=== PATIENT | female | born 1995 | race Caucasian/White ===

== ENCOUNTER → 2018-07-11 16:48 | Outpatient (CLI) | payer OTHER, SELFPAY ==
[2018-07-11 19:44] LABS: Chlamydia Trachomatis by PCR Negative (Negative); Neisserai gonorrhoeae by PCR Negative (Negative); Probe Check PASS; Sample Adequacy Control PASS; Specimen Processing Control PASS
[2018-07-19 07:39] LABS: HPV HC, High Risk Negative (Negative)
[2018-07-19 07:48] LABS: HPV Reflexed? YES, CHARGE PATIENT
== END ==
PROVIDERS: Visit Provider Obstetrics & Gynecology
DX: Z32.01 Encounter for pregnancy test, result positive (principal); Z12.4 Encounter for screening for malignant neoplasm of cervix; Z11.3 Encounter for screening for infections with a predominantly sexual mode of transmission
CPT/HCPCS: 87491; 87591; 87624; 88175; G0145

== ENCOUNTER → 2018-08-01 16:36 | Outpatient (CLI) | payer OTHER, SELFPAY ==
[2018-08-01 18:28] LABS: Color, Urine Yellow (Yellow); Glucose, Dipstick Normal (Normal); Ketone-Dipstick Negative (Negative); Leukocyte Esterase-Dipstick 25 /ul (Negative); Nitrite-Dipstick Negative (Negative); Occult Blood-Urine Negative /ul (Negative); Protein-Dipstick Negative (Negative); Specific Gravity, Urine 1.005 (1.002-1.030); Urine Bilirubin Dipstick Negative (Negative); Urine Clarity Clear (Clear); Urine Urobilinogen Normal (Normal)
[2018-08-01 18:30] LABS: Absolute Lymphocyte Count 1.72 X10^3/ul (0.83-4.51); Basophil# 0.02 X10^3/uL; Basophil% 0.2 % (0-1); Eosinophil# 0.09 X10^3/uL; Eosinophils% 1.1 % (0-5); Hematocrit 36.4 % (37-47); Hemoglobin 12.8 g/dl (12.0-15.0); Lymphocyte # 1.72 X10^3/ul (4.0); Lymphocyte % 20.2 % (19-41); Mean Corp Hgb Conc 35.2 g/gl (32-36); Mean Corpuscular Hgb 31.2 pg (27.0-32.0); Mean Corpuscular Volume 88.8 fL (81-99); Mean Platelet Vol. 9.9 fl (6.2-12.0); Monocyte% 7.1 % (0-10); Neutrophil # 6.04 X10^3/uL (2.7-7.7); Platelet Count 274 K/mm3 (150-450); RBC Distribution Width CV 11.9 % (11.6-14.6); RBC Distribution Width SD 37.6 fl (35.1-43.9); White Blood Count 8.5 K/mm3 (4.4-11.0)
[2018-08-01 18:35] LABS: Amphetamine Urine VISTA NEGATIVE (<1000 ng/mL); Barbiturate Urine VISTA NEGATIVE (< 200 ng/mL); Benzodiazepine Urine VISTA NEGATIVE (< 200 ng/mL); Cocaine Urine VISTA NEGATIVE (< 300 ng/mL); Ecstacy Urine VISTA NEGATIVE (< 500 ng/mL); Methadone Urine VISTA NEGATIVE (< 300 ng/mL); PCP Urine VISTA NEGATIVE (< 25 ng/mL); THC Urine VISTA NEGATIVE (< 50 ng/mL); Vista UDS pH Range 6
[2018-08-01 18:37] LABS: POSITIVE COUNT NO; POSITIVE DIFFERENTIAL NO; POSITIVE MORPHOLOGY NO
[2018-08-01 19:02] LABS: Thyroid Stim Hormone (TSH) 0.87 uIU/mL (0.358-3.74)
[2018-08-01 19:44] LABS: HIV - WCH Non-Reactive (Nonreactive); Rubella IgG 273.6 IU/mL
[2018-08-03 03:22] LABS: Prenatal RPR NONREACTIVE (NONREACTIVE)
[2018-08-05 13:10] LABS: HEPATITIS B SURFACE AG Negative (Negative); Hep C Antibodies <0.1 s/co ratio (0.0-0.9); V-Zoster IgG (Immunity) < 135 index (Immune >165)
== END ==
PROVIDERS: Visit Provider Obstetrics & Gynecology
DX: Z34.81 Encounter for supervision of other normal pregnancy, first trimester (principal)
CPT/HCPCS: 36415; 80307; 81002; 84443; 85025; 86703; 86762; 86787; 86803; 87340

== ENCOUNTER → 2018-11-08 13:08 | Outpatient (CLI) | payer OTHER, SELFPAY ==
[2018-11-08 16:11] LABS: Hematocrit 32.3 % (37-47); Hemoglobin 11.1 g/dl (12.0-15.0); Mean Corp Hgb Conc 34.4 g/gl (32-36); Mean Corpuscular Hgb 31.6 pg (27.0-32.0); Mean Platelet Vol. 9.5 fl (6.2-12.0); Platelet Count 259 K/mm3 (150-450); RBC Distribution Width CV 12.6 % (11.6-14.6); RBC Distribution Width SD 42.6 fl (35.1-43.9); Red Blood Count 3.51 M/mm3 (4.2-5.4); White Blood Count 10.6 K/mm3 (4.4-11.0)
[2018-11-08 16:12] LABS: Scan Indicated on CBC? Y/N NO
[2018-11-08 16:21] LABS: Glucose Challenge Gest 1H 50g 106 mg/dL (70-140)
== END ==
PROVIDERS: Visit Provider Obstetrics & Gynecology
DX: Z34.83 Encounter for supervision of other normal pregnancy, third trimester (principal)
CPT/HCPCS: 36415; 82950; 85027; 86850

== ENCOUNTER → 2018-12-27 | Outpatient (CLI) | payer OTHER, SELFPAY | END | disposition home or self-care (01) | LOC: LABSPEC 16:56 | PROVIDERS: Visit Provider Obstetrics & Gynecology | DX: Z36.85 Encounter for antenatal screening for Streptococcus B (principal) | CPT/HCPCS: 87081 ==

== ENCOUNTER 2019-02-01 02:00 | Inpatient (IN) | payer OTHER, MEDICAID, SELFPAY ==
[2019-02-01] MEDS: Lactated Ringers 1,000 ML 50 ML IV ×3 (02:33→08:06)
[2019-02-01 02:48] LABS: Absolute Lymphocyte Count 1.34 X10^3/ul (0.83-4.51); Absolute Neutrophil Count 15.5 X10^3/uL (2.0-7.7); Basophil# 0.02 X10^3/uL; Basophil% 0.1 % (0-1); Eosinophil# 0.05 X10^3/uL; Eosinophils% 0.3 % (0-5); Hematocrit 34.9 % (37-47); Hemoglobin 12.3 g/dl (12.0-15.0); Lymphocyte # 1.34 X10^3/ul (4.0); Lymphocyte % 7.4 % (19-41); Mean Corp Hgb Conc 35.2 g/gl (32-36); Mean Corpuscular Hgb 31.1 pg (27.0-32.0); Mean Corpuscular Volume 88.4 fL (81-99); Mean Platelet Vol. 9.4 fl (6.2-12.0); Neutrophil # 15.52 X10^3/uL (2.7-7.7); Neutrophil % 85.3 % (47-70); Platelet Count 279 K/mm3 (150-450); RBC Distribution Width CV 12.1 % (11.6-14.6); RBC Distribution Width SD 37.8 fl (35.1-43.9); Red Blood Count 3.95 M/mm3 (4.2-5.4); White Blood Count 18.2 K/mm3 (4.4-11.0)
[2019-02-01 02:49] LABS: POSITIVE COUNT NO; POSITIVE DIFFERENTIAL NO; POSITIVE MORPHOLOGY NO
[2019-02-01 02:57] VITALS: BMI 30.7
--- NOTE | 2019-02-01 03:48 | PCM.HPOB.BLA ---
History and Physical Date of Admission: 02/01/19 OB HISTORY AND PHYSICAL EXAMINATION History of this : 23 yo female Ab0 with EDC 01/27/2019 by 14 weeks 3 days Ultrasound, presents to Labor and Delivery at 40 5/7 wk EGA with [facility] of [facility]. care unremarkable: 1.) A negative blood type. 2.) Not immune to chickenpox Pertinent Past Medical History: none Allergies: No Known Allergies Medications: During - 28 mg-800 mcg tablet; Zofran 4 mg tablet; ferrous gluconate 324 mg (37.5 mg iron) tablet Review of Systems: Contractions PHYSICAL EXAMINATION General Appearance: 23 yo female with contractions Vital Signs: AF, VSS Heart: RRR without rubs or gallops Lungs: CTA x 2 Breasts: deferred Abdomen: gravid Pelvis: Cervix: 3/70/-3 posterior , soft, per RN check at admission Presentation: cephalic Station: Fetus: Size: AGA Movement: present Heart: 130-140s avg with accels to 150-160s occasional ? subtle late. in early portion of strip. UCs q 2-4 mins Impression /Plan: Intrauterine . 40 5/7 wk early labor. Admit. GBS negative. Watch progress, descent and tolerance of labor. See Progress Notes for Changes: Physician's Signature: Date:
[2019-02-01] MEDS: fentaNYL-bupivacaine (epidural) 100 ML BAG EPIDURAL ×2 (04:30→08:41)
--- NOTE | 2019-02-01 07:26 | PCM.PN.BLA ---
Progress Note 40 5/7 wk spont labor. Epidural placed, comfortable with this. AVSS EFM overall category I with FHR deceleration noted at prior cervix check lasting several minutes 130-140s baseline Scalp stim UCs q 2-4 mins CX: 6/80/-2 LOP. AROM clear to blood tinged fluid A/P: 40 5/7 wk labor. continue labor. watch progress, descent, tolerance of labor. Maternal position changes to assist with rotation and descent.
[2019-02-01] MEDS: Oxytocin 30 units/NS 500 ml 30 UNITS/500 ML IV.SOLN 334 UNITS IV (11:13)
[2019-02-01] MEDS: Methylergonovine 0.2 MG/ML Ampul IM (11:19)
[2019-02-01] MEDS: Oxytocin 30 units/NS 500 ml 30 UNITS/500 ML IV.SOLN 167 UNITS IV (11:43)
[2019-02-01] MEDS: Ondansetron 4 MG/2 ML Vial IV (12:01)
--- NOTE | 2019-02-01 12:05 | PCM.OPRPT ---
Vaginal Delivery Maternal Presentation: Active Labor 40 5/7 wk LABOR Amniotic Membrane Rupture Type: Artificial Amniotic Fluid Description: Clear Final JESU: 01/27/19 Gestational age: 40 Weeks and 5 Days [place] doctor who attended delivery (if requested by OB): Ashley Ca Date of Procedure: 02/01/19 Pre-Operative Diagnosis: 40 5/7 wk labor Post-Operative Diagnosis: same Surgery/ Procedure Performed: Spontaneous Vaginal Delivery Type of Anesthesia: Epidural Description of Procedure: of a murillo viable female over intact perineum to lacerations. Head delivered BG OP and nares bulb suctioned on perineum. No nuchal cord. Shoulders delivered easily. to maternal abdomen with spont vigorous cry. Cord clamped times two and cut. Dr Ca in to evaluate baby with continued time on maternal abdomen Ap 03/14 (color) exam; 1st deg posterior vaginal to perineal laceration noted, repaired to hemostatic and intact with 3-0 Vicryl . Left anterior labial 1st deg laceration noted, reapproximated as bleeding. Placenta delivered by spont expulsion, expression. 3V cord, normal appearing and intact with trailing membranes. Sponge stick used to gently curette the uterine cavity for continued bleeding. Excellent hemostasis noted then with bimanual massage and IV Pitocin. EBL 400 cc Pt and tolerated delivery well. To recovery, stable condition. Presentation: Vertex, BG Placental Delivery Description: Spontaneous, Expressed Placenta Disposition: [facility] Cord Vessel Description: 3 Vessels Cord Entanglement: None Drain: Guillory to straight drain Estimated Blood Loss: 400 A gender: Female (1 minute): 8 (5 minute): 8 Episiotomy Description: None Laceration: Midline, Perineal Extension/lac, Vaginal Extension/lac, 1st degree - and L anterior labial 1st deg laceration noted. Medications given after delivery: IV Pitocin Complications: None
--- NOTE | 2019-02-01 12:13 | DCINST_ITS ---
Discharge Diet: No Restrictions Discharge Activity: May Shower, May Take a Tub Bath May resume sexual activity in: 4-6 weeks Additional Activity Instructions:: Nothing in the vagina for 4-6 weeks. You may return to work/school in 6 weeks. Additional Instructions: If you experience any of the following, contact your healthcare provider. * Bleeding that soaks a pad every hour for 2 hours * Fever 100.4 or higher * Unrelieved abdominal pain * Problems urinating (including inability to urinate or burning while urinating). * Visual changes * Severe headache * Flu-like symptoms * Pain or redness in one of both of your breasts * Pain, warmth, tenderness or swelling in your legs, especially the calf area * Frequent nausea and vomiting * Symptoms of depression or anxiety If you experience any of the following, call 911 or go to the nearest Emergency Room. * Chest pain * Problems breathing * Seizure activity * Partial or complete paralysis of a body part, slurred speech, weakness or drooping of the face, or a sudden inability to walk or hold your balance Allergies/Adverse Reactions: Allergies No Known Allergies Allergy (Verified 02/01/19 02:55) Medications to take at Discharge Vits [Prenatabs FA ] 1 tab PO DAILY 02/01/19 Please Follow Up With: Aissatou Patrick MD - [phone] When: Call to make an appointment with your doctor in 6 weeks. Test Results: Test results from this visit will be discussed in further detail at your follow- up appointment, if applicable. Proposed Discharge Date: 02/03/19
--- NOTE | 2019-02-01 12:13 | PCM.DCVAG ---
Discharge Diet: No Restrictions Discharge Activity: May Shower, May Take a Tub Bath May resume sexual activity in: 4-6 weeks Additional Activity Instructions:: Nothing in the vagina for 4-6 weeks. You may return to work/school in 6 weeks. Additional Instructions: If you experience any of the following, contact your healthcare provider. Bleeding that soaks a pad every hour for 2 hours Fever 100.4 or higher Unrelieved abdominal pain Problems urinating (including inability to urinate or burning while urinating). Visual changes Severe headache Flu-like symptoms Pain or redness in one of both of your breasts Pain, warmth, tenderness or swelling in your legs, especially the calf area Frequent nausea and vomiting Symptoms of depression or anxiety If you experience any of the following, call 911 or go to the nearest Emergency Room. Chest pain Problems breathing Seizure activity Partial or complete paralysis of a body part, slurred speech, weakness or drooping of the face, or a sudden inability to walk or hold your balance Allergies/Adverse Reactions: Allergies No Known Allergies Allergy (Verified 02/01/19 02:55) Medications to take at Discharge Vits [Prenatabs FA ] 1 tab PO DAILY 02/01/19 Please Follow Up With: Aissatou Patrick MD - [phone] When: Call to make an appointment with your doctor in 6 weeks. Test Results: Test results from this visit will be discussed in further detail at your follow-up appointment, if applicable. Proposed Discharge Date: 02/03/19
[2019-02-01 13:54] VITALS: BP 126/73; PULSE 113; RESP 18; TEMP 36.6; O2SAT 95
[2019-02-01 14:43] VITALS: BP 117/74; PULSE 102; RESP 16; TEMP 37.7; O2SAT 96
[2019-02-01] MEDS: Ibuprofen 600 MG Tablet PO (14:53)
[2019-02-01] MEDS: Prenatal Vits Tablet 1 TABLET PO (15:01)
--- NOTE | 2019-02-01 15:46 | NURSING ---
Mother given spectra pump and shown how to use.
[2019-02-01 16:00] VITALS: BP 115/64; PULSE 85; RESP 16; TEMP 37.4; O2SAT 95
[2019-02-01 17:20] VITALS: TEMP 36.7
--- NOTE | 2019-02-01 17:32 | NURSING ---
Patient wishes to be discharged when able to go visit at [facility]. Pain controlled with Motrin, bleeding is appropriate, vitals within normal limits, and Rhogam injection given. Dr. Srinivasan notified and he gave order to be discharged.
== END 2019-02-01 18:10 | disposition home or self-care (01) | DRG 807 ==
PROVIDERS: Admitting Provider Obstetrics & Gynecology; Visit Provider Obstetrics & Gynecology
DX: O48.0 Post-term pregnancy (principal); Z37.0 Single live birth; Z3A.40 40 weeks gestation of pregnancy; O70.0 First degree perineal laceration during delivery; O76 Abnormality in fetal heart rate and rhythm complicating labor and delivery
CPT/HCPCS: 59025; 59050; 85025; 85461; 86850; 86900; 90384; 99218; J7120; G0378; J2405; J2790